=== PATIENT | male | born 1975 | race Two or more races ===

== ENCOUNTER 2023-03-05 21:49 | Emergency (ER) | payer MEDICAID ==
[~2023-03-05] VITALS: Ht 182.9 cm; Wt 86.2 kg
[2023-03-05 21:50] VITALS: BP 122/84; TEMP 98; O2SAT 97
[2023-03-05] MEDS ORDERED: NABU-141 PO (22:17)
== END 2023-03-05 22:58 | disposition home or self-care (01) ==
LOC: ER 21:55
DX: S46.212A Strain of muscle, fascia and tendon of other parts of biceps, left arm, initial encounter (principal); X50.0XXA Overexertion from strenuous movement or load, initial encounter; Y93.89 Activity, other specified; Y92.89 Other specified places as the place of occurrence of the external cause; Y99.8 Other external cause status